=== PATIENT | male | born 1955 | race Caucasian/White ===

== ENCOUNTER → 2017-04-29 | Day surgery (SDC) | payer MEDICARE ==
[~2017-04-29] MED LIST: LACTATED RINGER'S 1000 ML INJ 1,000 ML ONE; MIDAZOLAM HCL 2 MG/2 ML VIAL ONE; ONDANSETRON HCL 4 MG/2 ML VIAL IV PUSH ONE; PROPOFOL 200 MG/20 ML AMP IV ONE; SODIUM CHLOR 0.9% 250 ML INJ 250 ML IV ONE; VANCOMYCIN HCL 1000 MG VIAL ONE
--- NOTE | 2017-04-30 20:48 | TN ---
cc: KISHORE CARBALLO DATE OF SURGERY 04/29/2017 PREOPERATIVE DIAGNOSIS Melanoma in situ, left shoulder. POSTOPERATIVE DIAGNOSIS Melanoma in situ, left shoulder. PROCEDURE Wide excision of left shoulder melanoma in situ with intermediate closure of wound 6 cm x 2.5 cm. ATTENDING SURGEON MD Herminio. ROUTING EQUIPMENT TENDER Staff. ANESTHESIA General and local anesthetic. BLOOD LOSS Less than 10 cc. COMPLICATIONS None. FINDINGS Grossly excised previous biopsy site of the left shoulder with closure with minimal tension. INDICATIONS FOR PROCEDURE The patient is a 61-year-old male who was diagnosed with a melanoma in situ to his left shoulder by a trailer sections assembler. The patient was found otherwise to have no other suspicious lesions. Discussed with the patient about treatment options including wide excision and closure of his melanoma including the risks, benefits, alternatives and he agreed to undergo the procedure. PROCEDURE The patient was taken to the operating room at [facility], placed under general anesthesia through the LMA airway. The left shoulder was prepped and draped under sterile fashion. Time-out was performed. Local anesthetic was instilled throughout the area of the planned excision. A 5 mm or greater elliptical incision was made to completely encompass the lesion on the left shoulder midline with the shoulder and arm. This was excised with a 15 blade scalpel followed by Bovie electrocautery. We dissected down to the subcutaneous tissue, down to the fascia the trapezius. Then able to do a very small amount of undermining and easily were able to close the skin with minimal tension. The stitch was placed at the proximal superior 12 o'clock position of the excision and passed off for permanent processing for pathology. We had excellent hemostasis. We closed the 6 cm x 2.5 cm wound with deep dermal 3-0 Vicryl sutures followed by 4-0 Monocryl and Dermabond. The patient at this point in time was discontinued from anesthesia, taken to PACU in stable condition. The patient tolerated the procedure well. No apparent complications. All counts were correct. I was present and performed the entire procedure. Kishore Carballo MD AWG/EO /8:30 PM /8:37 PM
== END | disposition home or self-care (01) ==
LOC: ESDC 07:17
PROVIDERS: ATTEND Surgery
DX: D03.62 Melanoma in situ of left upper limb, including shoulder (principal)
CPT/HCPCS: 00400; 11606; 12032; 88305; J2250; J2405; J3010; J3370; J7050; J7120